=== PATIENT | male | born 1985 ===

== ENCOUNTER 2018-07-24 11:55 | Inpatient (IN) ==
[2018-07-24 13:59] LABS: Basophils % 0.2 % (0.0-0.8); Eosinophils # 0.3 10*3/uL (0.0-0.87); Eosinophils % 3.3 % (0.00-10.9); Hematocrit 45.1 VOL% (42.0-52.0); Hemoglobin 15.2 GM/DL (14.0-18.0); Immature Granulocytes % 0.5 %; Immature Granulocytes Absolute 0.04 #; Lymphocytes # 2.1 10*3/uL (1.4-4.0); Lymphocytes % 23.4 % (21.2-54.2); Mean Corpuscular HGB Conc 33.7 GM/DL (32-36); Mean Corpuscular Hemoglobin 32 PG (27-34); Mean Corpuscular Volume 95.8 FL (87-102); Mean Platelet Volume 9.2 FL (9.6-12.0); Monocytes # 0.8 10*3/uL (0.11-0.8); Monocytes % 9.1 % (1.7-12.7); Neutrophils # 5.6 10*3/uL (1.4-7.4); Neutrophils % 63.5 % (38.7-73.9); Platelet Count 265 T/CUMM (130-400); Red Blood Count 4.71 MC/CUMM (3.8-5.5); Red Cell Distribution Width 11.8 % (9.3-17.3); White Blood Count 8.8 T/CUMM (4-12)
[2018-07-24 14:16] LABS: Albumin 3.7 G/DL (3.4-5.0); Bilirubin,Total 0.6 MG/DL (0.2-1.0); Calcium 8.5 MG/DL (8.5-10.1); Osmolality,Calculated 270.8 MOS/KG (273-304); Potassium 3.9 MMOL/L (3.5-5.1); Total Protein 7.8 G/DL (6.4-8.3)
[2018-07-24] MEDS ORDERED: VANCOMYCIN INJ 1,000 MG in SODIUM CHLORIDE 0.9% 250 ML IV STA (14:50)
[2018-07-24] MEDS ORDERED: ONDANSETRON 4 MG/2 ML VIAL IV PRN (14:54)
[2018-07-24] MEDS ORDERED: MAGNESIUM HYDROXIDE SUSP 30 ML UDCUP PO PRN (14:54)
[2018-07-24] MEDS ORDERED: ACETAMINOPHEN 325 MG TABLET PO PRN (14:54)
[2018-07-24] MEDS ORDERED: VANCOMYCIN 1,000 MG VIAL ONE (14:56)
[2018-07-24] MEDS ORDERED: NICOTINE 21 MG/24 HR PATCH TRANSDERM PRN (14:57)
[2018-07-24] MEDS ORDERED: LACTATED RINGERS 1,000 ML IV SCH (15:00)
[2018-07-24] MEDS ORDERED: FAMOTIDINE 20 MG TABLET PO STA (15:11)
[2018-07-24] MEDS ORDERED: LIDOCAINE 2%/EPI 20 ML VIAL ONE (16:55)
[2018-07-24] MEDS ORDERED: PROPOFOL 200 MG/20 ML VIAL IV ONE (17:29)
[2018-07-24] MEDS ORDERED: DEXAMETHASONE 4 MG/1 ML VIAL ONE ×2 (17:30→17:31)
[2018-07-24] MEDS ORDERED: SEVOFLURANE 1 UNIT/15 MINUTE INH ONE (17:30)
[2018-07-24] MEDS ORDERED: fentaNYL 100 MCG/2 ML VIAL ONE (17:30)
[2018-07-24] MEDS ORDERED: MIDAZOLAM 2 MG/2 ML VIAL ONE (17:30)
[2018-07-24] MEDS ORDERED: ONDANSETRON 4 MG/2 ML VIAL ONE (17:31)
[2018-07-24] MEDS ORDERED: SUCCINYLCHOLINE 200 MG/10 ML VIAL ONE (17:31)
[2018-07-24] MEDS ORDERED: ACETAMINOPHEN 1,000 MG/100 ML VIAL IV ONE (17:31)
[2018-07-24] MEDS: VANCOMYCIN INJ 1,250 MG in SODIUM CHLORIDE 0.9% 250 ML IV SCH (20:18)
[2018-07-25 05:07] LABS: Basophils % 0.1 % (0.0-0.8); Hematocrit 41.5 VOL% (42.0-52.0); Hemoglobin 14.2 GM/DL (14.0-18.0); Immature Granulocytes % 0.2 %; Immature Granulocytes Absolute 0.02 #; Lymphocytes # 0.9 10*3/uL (1.4-4.0); Lymphocytes % 10.3 % (21.2-54.2); Mean Corpuscular HGB Conc 34.2 GM/DL (32-36); Mean Corpuscular Hemoglobin 33 PG (27-34); Mean Platelet Volume 9.4 FL (9.6-12.0); Monocytes # 0.3 10*3/uL (0.11-0.8); Monocytes % 3.9 % (1.7-12.7); Neutrophils # 7.2 10*3/uL (1.4-7.4); Neutrophils % 85.5 % (38.7-73.9); Platelet Count 284 T/CUMM (130-400); Red Blood Count 4.37 MC/CUMM (3.8-5.5); Red Cell Distribution Width 11.3 % (9.3-17.3); White Blood Count 8.5 T/CUMM (4-12)
[2018-07-25] MEDS: KETOROLAC 30 MG/1 ML VIAL IV PRN (08:49)
[2018-07-25] MEDS: VANCOMYCIN INJ 1,250 MG in SODIUM CHLORIDE 0.9% 250 ML IV SCH ×2 (08:56→20:36)
[2018-07-25] MEDS: FONDAPARINUX 2.5 MG/0.5 ML SYRINGE SUBCUT SCH (14:29)
[2018-07-26] MEDS: KETOROLAC 30 MG/1 ML VIAL IV PRN (10:14)
[2018-07-26] MEDS: VANCOMYCIN INJ 1,250 MG in SODIUM CHLORIDE 0.9% 250 ML IV SCH ×2 (10:20→22:36)
[2018-07-26] MEDS: FONDAPARINUX 2.5 MG/0.5 ML SYRINGE SUBCUT SCH (10:21)
[2018-07-26] MEDS: HYDROmorphone 2 MG/1 ML VIAL IV PRN (21:04)
[2018-07-27] MEDS: VANCOMYCIN INJ 1,250 MG in SODIUM CHLORIDE 0.9% 250 ML IV SCH ×2 (05:12→16:03)
[2018-07-27] MEDS: KETOROLAC 30 MG/1 ML VIAL IV PRN (08:41)
[2018-07-27] MEDS: FONDAPARINUX 2.5 MG/0.5 ML SYRINGE SUBCUT SCH (11:13)
[2018-07-27] MEDS: CIPROFLOXACIN 500 MG TABLET PO SCH ×2 (11:13→20:51)
[2018-07-27] MEDS: HYDROmorphone 2 MG/1 ML VIAL IV PRN (20:56)
[2018-07-28] MEDS: VANCOMYCIN INJ 1,250 MG in SODIUM CHLORIDE 0.9% 250 ML IV SCH ×3 (00:15→16:24)
[2018-07-28 05:25] LABS: Calcium 8.1 MG/DL (8.5-10.1); Osmolality,Calculated 278.3 MOS/KG (273-304); Potassium 3.6 MMOL/L (3.5-5.1)
[2018-07-28] MEDS: CIPROFLOXACIN 500 MG TABLET PO SCH ×2 (08:31→20:38)
[2018-07-28] MEDS: FONDAPARINUX 2.5 MG/0.5 ML SYRINGE SUBCUT SCH (12:18)
[2018-07-29] MEDS: VANCOMYCIN INJ 1,250 MG in SODIUM CHLORIDE 0.9% 250 ML IV SCH ×2 (00:20→09:52)
[2018-07-29] MEDS: CIPROFLOXACIN 500 MG TABLET PO SCH (08:05)
[2018-07-29] MEDS: FONDAPARINUX 2.5 MG/0.5 ML SYRINGE SUBCUT SCH (09:58)
[2018-07-29] MEDS ORDERED: VANCOMYCIN INJ 1,250 MG in SODIUM CHLORIDE 0.9% 250 ML IV SCH (12:00)
[2018-07-29 12:14] VITALS: BP 109/57
== END 2018-07-29 12:56 | disposition home or self-care (01) | DRG 501 ==
LOC: N.ED 11:55 → N.EDINP 14:54 → N.3E 15:00
PROVIDERS: ADMIT Orthopaedic Surgery; ATTEND Orthopaedic Surgery